=== PATIENT | male | born 1995 | race Caucasian/White ===

== ENCOUNTER 2020-11-20 13:25 | Emergency (ER) | payer OTHER, MEDICAID, SELFPAY ==
--- NOTE | ~2020-11-20 | XR_ITS ---
XR lumbar spine min 4V DATE: 11/20/2020 13:58 INDICATION: Back pain. No known injury. TECHNIQUE: AP, lateral, bilateral oblique views, coned lateral lumbosacral view COMPARISON: 12/29/2017 lumbar spine FINDINGS: The lumbar vertebrae are normally aligned. No fracture or bone destruction, spondylolysis o r spondylolisthesis. The lumbar and lumbosacral interspaces are well preserved. The lumbar pedicles a re intact. The sacroiliac joints appear normal. IMPRESSION: Normal examination Reviewed, dictated and finalized at location A. [employer] IMPRESSION: Normal examination
[2020-11-20 13:31] VITALS: BP 153/100; PULSE 94; RESP 18; TEMP 36; O2SAT 100
--- NOTE | 2020-11-20 13:48 | ED.ABDPAIN ---
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 patient denies injury or trauma or other complaints is tried ibuprofen with minimal improvement presents in no distress Related Data Allergies Allergy/AdvReac Type Severity Reaction Status Date / Time Penicillins Allergy Unknown swelling Verified 04/07/19 19:15 Honey Bee Allergy Unknown Uncoded 04/07/19 19:15 Review of Systems Review of Systems: All systems reviewed & are unremarkable except as noted in HPI and below PMFSH Social History Social History (Updated 11/20/20 @ 13:49 by Amrik Javed PA-C) Smoking status: Never smoker Exam Narrative: Exam Narrative: GENERAL: Well-appearing, well-nourished, and in no acute distress. HEAD: Normocephalic, atraumatic. EYES: PERRLA and EOMI. ENT: Nares clear, no rhinorrhea or epistaxis. Mucous membranes moist. EXTREMITIES: Normal range of motion. No edema. Tenderness over the right SI joint no deformities noted SKIN: Warm, dry, no rash. NEURO: No focal deficits. Alert and oriented x3. Normal speech and gait PSYCH: Normal mood and affect. Course Course Emergency Course: Patient evaluated in the emergency department for low back pain no high risk changes will be discharged treated symptomatically with follow-up with primary care given reasons to return Vital Signs Vital signs: Vital Signs Temperature 96.8 F L 11/20/20 13:31 Pulse Rate 94 11/20/20 13:31 Respiratory Rate 18 11/20/20 13:31 Blood Pressure 153/100 H 11/20/20 13:31 Pulse Oximetry 100 11/20/20 13:31 Temperature 96.8 F L 11/20/20 13:31 Pulse Rate 94 11/20/20 13:31 Respiratory Rate 18 11/20/20 13:31 Blood Pressure 153/100 H 11/20/20 13:31 Pulse Oximetry 100 11/20/20 13:31 MDM - Abdominal Pain MDM Narrative Medical decision making narrative: Patients pain is positional in nature and localized to back without signs of cord compression or cauda equina based on neurological exam, skeletal exam and history. No fever or other significant factors to suggest osteomyelitis or spinal epidural abscess. No symptoms or signs to suggest pain is referred from abdominal or / cardiopulmonary sources. No pulsatile masses noted on exam. Patient ambulates with steady gait and is stable for outpatient management given case findings. Imaging Data Radiologist's impression: ITS Impressions Lumbar Spine X-Ray 11/20/20 14:00 IMPRESSION: Normal examination Discharge Plan Discharge Clinical Impression: Acute low back pain Patient Disposition: Home, Self-Care Condition: Stable Instructions: Antibiotic Form, Acute Low Back Pain (ED) Additional Instructions: Medications as needed and prescribed. Limit lifting and bending. You may apply heat or cold to the area as needed. Follow up with your doctor for further care in the next 7 days. Contact your doctor or return to the emergency department if you develop problems with bladder or bowel function, weakness or loss of feeling in one or both of your legs, or any other serious concerns. Prescriptions: New cyclobenzaprine 10 mg tablet 10 mg PO TID PRN (Reason: muscle spasm) Qty: 14 RF: 0 naproxen [Naprosyn] 500 mg tablet 500 mg PO BID PRN (Reason: pain) Qty: 7 RF: 0 lidocaine 5 % adhesive patch,medicated 1 patch topical DAILY Qty: 1 RF: 0 Follow-up/Referrals: UNKNOWN,DOCTOR [Primary Care Provider] - Garett Salguero MD [Physician] -
[2020-11-20 14:46] VITALS: PULSE 80; RESP 12; O2SAT 99
== END 2020-11-20 14:51 | disposition home or self-care (01) ==
LOC: ANHED 14:43
PROVIDERS: Emergency Provider Emergency Medicine
DX: M54.5 Low back pain (principal)
CPT/HCPCS: 72110; 99283